=== PATIENT | male | born 1970 | race African-American/Black ===

== ENCOUNTER 2020-08-12 10:03 | Emergency (ER) | payer SELFPAY ==
[2020-08-12] MEDS ORDERED: Ketorolac 60 MG/2 ML SDV IM ONE (11:44)
--- NOTE | 2020-08-12 11:57 | EDM.PDOC ---
ED HPI GENERAL MEDICAL PROBLEM - General Chief Complaint: General Stated Complaint: HX OF GOUT AND HAVING FLARE UP Time Seen by Provider: 08/12/20 11:37 Source of Information: Reports: Patient, RN Notes Reviewed History Limitations: Reports: No Limitations - History of Present Illness INITIAL COMMENTS - FREE TEXT/NARRATIVE: Patient is a 50-year-old male who presents to the ED for the evaluation of a possible gout flareup. Patient notes that he has a history of gout, and he was awakened this morning rather early with acute pain in his right heel. States is very similar to gout flares in the past. He is having some warmth and tenderness to the area as well. He denies any history of trauma. He states the pain is around a 6 out of 10 at this time, but with any sort of pressure it makes it worse. Patient denies any other sick-like symptoms, fever/chills, cough/shortness of breath, nausea/vomiting/diarrhea. He has not taken anything at home for pain management. Right Foot Pain Score (Numeric/FACES): 6 - Related Data Allergies Allergy/AdvReac Type Severity Reaction Status Date / Time No Known Allergies Allergy Verified 08/12/20 10:14 Home Meds: Home Meds cloNIDine HCL [Catapres] 0.2 mg PO TID 01/19/14 [History] Acetaminophen/HYDROcodone [[place] 325-5 MG] 1 tab PO Q6H PRN #6 tablet 08/12/20 [Rx] Colchicine 0.6 mg PO ASDIRECTED #3 tablet 08/12/20 [Rx] predniSONE 20 mg PO ASDIRECTED #12 tab 08/12/20 [Rx] Past Medical History - Past Health History Medical/Surgical History: Denies Medical/Surgical History Cardiovascular History: Reports: Hypertension Musculoskeletal History: Reports: Gout Social & Family History - Tobacco Use Tobacco Use Status *Q: Never Tobacco User Second Hand Smoke Exposure: No - Caffeine Use Caffeine Use: Reports: None - Recreational Drug Use Recreational Drug Use: No ED ROS GENERAL - Review of Systems Review Of Systems: Comprehensive ROS is negative, except as noted in HPI. ED EXAM, GENERAL - Physical Exam Exam: See Below Exam Limited By: No Limitations General Appearance: Alert, WD/WN, No Apparent Distress Respiratory/Chest: No Respiratory Distress, Lungs Clear, Normal Breath Sounds, Chest Non-Tender, Decreased Breath Sounds Cardiovascular: Normal Peripheral Pulses, Regular Rate, Rhythm, No Edema, No Murmur Extremities: Normal Inspection, Normal Capillary Refill Neurological: Alert, Oriented, Normal Cognition, No Motor/Sensory Deficits Psychiatric: Normal Affect, Normal Mood Skin Exam: Warm, Dry, Intact, No Rash, Erythema (to right posterior heel, tenderness associated with this as well.) Course - Vital Signs Last Recorded V/S: Last Vital Signs Temp 97.0 F 08/12/20 10:11 Pulse 104 H 08/12/20 10:11 Resp 17 08/12/20 10:11 BP 180/112 H 08/12/20 10:11 Pulse Ox 100 08/12/20 10:11 - Orders/Labs/Meds Meds: Medications Discontinued Medications Generic Name Dose Route Start Last Admin Trade Name Freq PRN Reason Stop Dose Admin Ketorolac Tromethamine 60 mg 08/12/20 11:44 Toradol IM 08/12/20 11:45 ONETIME ONE - Re-Assessments/Exams Free Text/Narrative Re-Assessment/Exam: 08/12/20 11:52 Patient presents to the ED for the evaluation of his possible gout. I do believe this is clinically consistent with a gout flare. Patient will be given a shot of Toradol in the ER, colchicine for acute management, prednisone for prolonged anti-inflammatory management, and a few [place] tabs for acute pain. Departure - Departure Time of Disposition: 11:53 Disposition: Home, Self-Care 01 Condition: Good Clinical Impression: Gout of right ankle Qualifiers: Gout etiology: unspecified cause Chronicity: acute Qualified Code(s): M10.9 - Gout, unspecified - Discharge Information *PRESCRIPTION DRUG MONITORING PROGRAM REVIEWED*: Yes *COPY OF PRESCRIPTION DRUG MONITORING REPORT IN PATIENT BELLE: No Prescriptions: Colchicine 0.6 mg PO ASDIRECTED #3 tablet Acetaminophen/HYDROcodone [[place] 325-5 MG] 1 tab PO Q6H PRN #6 tablet PRN Reason: Pain predniSONE 20 mg PO ASDIRECTED #12 tab Instructions: Low-Purine Eating Plan Referrals: PCP,Not In Area [Primary Care Provider] - Additional Instructions: You were seen in the ER today for your gout flareup. You were given a few different prescriptions. The colchicine is for initial management; take 2 tablets when you get the medication, and then 1 more tablet 1 hour after the initial dose. The prednisone will be 1 tablet 2 times a day for the next 6 days, the hydrocodone/acetaminophen 5/325 mg is for pain not relieved by the prednisone alone. Do not drive while taking the hydrocodone medication. These medications can be quite addictive, so take as few as you need to get adequate pain control. These medications also can cause some constipation, so I suggest using a stool softener like MiraLAX or Dulcolax while using these medications. Also increase your oral fluid intake. If you do not already have a primary care provider in this area, I would recommend that you set up with one. Our clinic number [phone]. Any family practice provider would be able to provide you with the services. Please return to the ER at any time if symptoms change or worsen. Sepsis Event Note (ED) - Evaluation Sepsis Screening Result: No Definite Risk - Focused Exam Vital Signs: Vital Signs Temp Pulse Resp BP Pulse Ox 08/12/20 10:11 97.0 F 104 H 17 180/112 H 100
== END 2020-08-12 12:52 | disposition home or self-care (01) ==
LOC: JD.ED 10:03
DX: M10.9 Gout, unspecified (principal); I10 Essential (primary) hypertension; Z79.899 Other long term (current) drug therapy
CPT/HCPCS: 96372; 99283; J1885

== ENCOUNTER 2020-08-20 13:53 | Emergency (ER) | payer SELFPAY ==
--- NOTE | 2020-08-20 14:26 | EDM.PDOC ---
ED HPI GENERAL MEDICAL PROBLEM - General Chief Complaint: Respiratory Problem Stated Complaint: SOB Time Seen by Provider: 08/20/20 14:19 Source of Information: Reports: Patient, RN Notes Reviewed - History of Present Illness INITIAL COMMENTS - FREE TEXT/NARRATIVE: 50 yr old male was feeling short of breath at work having to wear some type of respirator mask. He has not been ill. He states his coworkers got worried, made him come to the ED. BP noted to be high on arrival to ED. He has been prescribed clinidine 0.2 mg tid but only takes it at night when he is working because it makes him drowsy. Here in the ED does not feel short of breath. He has had no chest pain, [place], nausea, vomiting, cough, fever or chills. States his BP is usually OK the occasional times he has checked. - Related Data Allergies Allergy/AdvReac Type Severity Reaction Status Date / Time No Known Allergies Allergy Verified 08/20/20 15:04 Home Meds: Home Meds cloNIDine HCL [Catapres] 0.2 mg PO TID 01/19/14 [History] Acetaminophen/HYDROcodone [[place] 325-5 MG] 1 tab PO Q6H PRN #6 tablet 08/12/20 [Rx] Colchicine 0.6 mg PO ASDIRECTED #3 tablet 08/12/20 [Rx] predniSONE 20 mg PO ASDIRECTED #12 tab 08/12/20 [Rx] Past Medical History - Past Health History Medical/Surgical History: Denies Medical/Surgical History Cardiovascular History: Reports: Hypertension Musculoskeletal History: Reports: Gout Social & Family History - Tobacco Use Tobacco Use Status *Q: Never Tobacco User - Caffeine Use Caffeine Use: Reports: None ED ROS GENERAL - Review of Systems Review Of Systems: See Below Constitutional: Reports: No Symptoms HEENT: Denies: Eye Pain, Vision Change Respiratory: Reports: Other (not short of breath at time of exam). Denies: Shortness of Breath, Cough Cardiovascular: Reports: Other (was short of breath at work when having to wear a respirator type mask). Denies: Chest Pain GI/Abdominal: Denies: Abdominal Pain, Nausea, Vomiting Musculoskeletal: Denies: Back Pain Skin: Reports: No Symptoms Neurological: Denies: Dizziness, Headache, Numbness, Tingling, Trouble Speaking, Difficulty Walking, Weakness ED EXAM, GENERAL - Physical Exam Exam: See Below General Appearance: Alert, No Apparent Distress Eye Exam: Bilateral Eye: PERRL Head: Atraumatic. No: Facial Swelling Neck: Supple, Full Range of Motion Respiratory/Chest: No Respiratory Distress, Lungs Clear, Normal Breath Sounds Cardiovascular: Regular Rate, Rhythm GI/Abdominal: Soft, Non-Tender Back Exam: No: CVA Tenderness (L), CVA Tenderness (R) Extremities: No: Pedal Edema, Leg Pain, Increased Warmth, Redness Neurological: Alert, Oriented, No Motor/Sensory Deficits Skin Exam: Dry Course - Vital Signs Last Recorded V/S: Last Vital Signs Temp 97.8 F 08/20/20 14:13 Pulse 99 08/20/20 14:13 Resp 18 08/20/20 16:08 BP 191/119 H 08/20/20 16:08 Pulse Ox 98 08/20/20 16:08 - Orders/Labs/Meds Meds: Medications Discontinued Medications Generic Name Dose Route Start Last Admin Trade Name Warren PRN Reason Stop Dose Admin Clonidine HCl 0.2 mg 08/20/20 14:33 08/20/20 15:03 Catapres PO 08/20/20 14:34 0.2 mg ONETIME ONE Administration - Re-Assessments/Exams Free Text/Narrative Re-Assessment/Exam: 08/21/20 13:42. As noted he has been prescribed clonidine 0.2 mg tid but usually only takes it a bedtime when he works because "it makes him drowsy". BP did come down reasonalbly well after clonidine 0.2 mg PO. Discharge instr. as documented. Departure - Departure Time of Disposition: 15:27 Disposition: Home, Self-Care 01 Condition: Fair Clinical Impression: Dyspnea, Hypertension - Discharge Information Instructions: Shortness of Breath, Adult, [id number] Referrals: PCP,None [Primary Care Provider] - Forms: ED Department Discharge, ED Return to Work/School Form Additional Instructions: You have been given clonidine 0.2 mg PO here in the ED for Hypertension. Check your blood pressures about twice a day, keep a record and than follow up with your regular provider or one of our [facility] medical providers in about 7 to 10 days if needed for readings running higher than 170/90 on average. Return to ED as needed. Sepsis Event Note (ED) - Evaluation Sepsis Screening Result: No Definite Risk
[2020-08-20] MEDS ORDERED: cloNIDine 0.1 MG Tab PO ONE (14:33)
== END 2020-08-20 16:08 | disposition home or self-care (01) ==
LOC: JD.ED 13:53
DX: R06.02 Shortness of breath (principal); I10 Essential (primary) hypertension
CPT/HCPCS: 99284; A9270; 99283

== ENCOUNTER 2022-01-31 19:36 | Emergency (ER) | payer SELFPAY ==
[2022-01-31] MEDS ORDERED: Ketorolac 60 MG/2 ML SDV IM ONE (20:34)
== END 2022-01-31 21:40 | disposition home or self-care (01) ==
LOC: JD.ED 19:36
DX: M25.551 Pain in right hip (principal); I10 Essential (primary) hypertension; M10.9 Gout, unspecified; Z79.899 Other long term (current) drug therapy
CPT/HCPCS: 73502; 96372; 99283; J1885

== ENCOUNTER 2022-11-10 20:14 | Emergency (ER) | payer SELFPAY ==
[2022-11-10 21:10] LABS: CORONAVIRUS COVID-19 NAA NEGATIVE (NEGATIVE)
== END 2022-11-10 21:33 | disposition home or self-care (01) ==
LOC: JD.ED 20:14
DX: J06.9 Acute upper respiratory infection, unspecified (principal); I10 Essential (primary) hypertension; M10.9 Gout, unspecified; Z79.899 Other long term (current) drug therapy; Z86.16 Personal history of COVID-19; Z20.822 Contact with and (suspected) exposure to COVID-19
CPT/HCPCS: 0241U; 99283